=== PATIENT | male | born 1995 | race African-American/Black ===

== ENCOUNTER 2018-12-20 21:48 | Emergency (ER) | payer MEDICARE ==
[~2018-12-20] VITALS: Ht 177.8 cm; Wt 52.2 kg
[2018-12-20] MEDS ORDERED: CLONIDINE HCL0.1 MG PO (22:06)
[2018-12-20] MEDS ORDERED: LITHIUM CARBON150 MG PO (22:06)
[2018-12-20] MEDS ORDERED: INTUNIV2 MG PO (22:06)
[2018-12-20] MEDS ORDERED: SEROQUEL300 MG PO (22:06)
[2018-12-20] MEDS ORDERED: THORAZINE25 MG PO (22:06)
[2018-12-20] MEDS ORDERED: MELATONIN3 MG PO (22:06)
[2018-12-20] MEDS ORDERED: DEPAKOTE ER500 MG PO (22:06)
== END 2018-12-20 22:23 | disposition home or self-care (01) ==
LOC: FSED 21:48
DX: R04.0 Epistaxis (principal)
CPT/HCPCS: 99282